=== PATIENT | female | born 1995 | race Caucasian/White ===

== ENCOUNTER 2016-09-28 00:28 | Inpatient (IN) | payer MEDICAID, OTHER ==
[~2016-09-28] VITALS: Ht 167.6 cm; Wt 97.0 kg
[2016-09-28] MEDS ORDERED: OXYTOCIN 30 UNITS/LR 500 ML IV SCH ×3 (01:30→07:00)
[2016-09-28] MEDS ORDERED: ACETAMINOPHEN/CODEINE #3 TAB PO PRN ×2 (01:30→18:30)
[2016-09-28] MEDS ORDERED: BUTORPHANOL 2 MG INJ IV PRN (01:30)
[2016-09-28] MEDS ORDERED: LACTATED RINGER'S 1,000 ML IV PRN (01:30)
[2016-09-28] MEDS ORDERED: METHYLERGONOVINE 0.2 MG INJ IM PRN ×2 (01:30→18:30)
[2016-09-28] MEDS ORDERED: CARBOPROST 250 MCG INJ IM PRN ×2 (01:30→18:30)
[2016-09-28] MEDS ORDERED: MISOPROSTOL 200 MCG TAB PR PRN ×2 (01:30→18:30)
[2016-09-28] MEDS ORDERED: LIDOCAINE 1% (MPF) 30 ML INJ INJ PRN (01:30)
[2016-09-28] MEDS ORDERED: OXYTOCIN 30 UNITS/LR 500 ML IV PRN ×2 (01:30→18:30)
[2016-09-28 01:38] VITALS: Ht 167.6 cm; Wt 97.0 kg
[2016-09-28] MEDS: LACTATED RINGER'S 1,000 ML IV SCH ×2 (01:50→09:28)
[2016-09-28 01:59] LABS: ADD SCAN DIFF NO
[2016-09-28 02:01] LABS: BASOPHILS % 0.3 % (0.0-2.0); EOSINOPHILS # 0.1 10^3/ul (0.0-0.5); EOSINOPHILS % 0.7 % (0.0-7.0); HEMATOCRIT 36.5 % (37.0-47.0); HEMOGLOBIN 12.3 g/dl (12.0-16.0); LYMPHOCYTES # 1.7 10^3/ul (0.8-2.9); LYMPHOCYTES % 14.2 % (15.0-51.0); MEAN CORPUSCULAR HEMOGLOBIN 28.7 pg (29.0-33.0); MEAN CORPUSCULAR HGB CONC 33.7 g/dl (32.0-37.0); MEAN CORPUSCULAR VOLUME 85.1 fl (82.0-101.0); MEAN PLATELET VOLUME 10.9 fl (7.4-10.4); MONOCYTE # 0.9 10^3/ul (0.3-0.9); MONOCYTES % 7.5 % (0.0-11.0); NEUTROPHIL # 8.9 10^3/ul (1.6-7.5); NEUTROPHILS % 76.1 % (39.0-77.0); PLATELET COUNT 209 10^3/UL (140-415); RED BLOOD COUNT 4.29 10^6/ul (4.20-5.40); RED CELL DISTRIBUTION WIDTH 13.5 % (11.5-14.5); WHITE BLOOD COUNT 11.6 10^3/ul (4.8-10.8)
--- NOTE | 2016-09-28 02:08 | TRIAGE ---
OB Triage Datetime Report Generated by CPN: 09/28/2016 02:08 Datetime: 09/28/2016 02:01 Assessment Type: Admission Assessment Vaginal Bleeding: None Maternal Assessment Level of Consciousness: Fully Conscious Headache: Denies Blurred Vision: No Respiratory Effort: Unlabored; Regular Rhythm; Equal Expansion Breath Sounds, Left: Clear and Equal Breath Sounds, Right: Clear and Equal Nausea/Vomiting: Denies RUQ Epigastric Pain: Denies Lower Extremities Edema: Bilateral Lower Extremities Degree: 1+ Facial Edema: None Fall Risk Assessment History of Falling: (0) No Secondary Diagnosis: (0) No Ambulatory Aid: (0) Bedrest/Nurse Assist IV Therapy: (20) Yes Gait: (0) Normal/Bedrest/Immobile Mental Status: (0) Oriented to Own Ability Fall Score: 20 Fall Risk Score Definition: No Risk: No action required Pain Assessment Pain Scale: 6 Pain Presence: Intermittent Pain Type: Cramping Pain Location: Abdomen Pain Goal: 2 Membrane Status: Ruptured Membranes Ruptured Date/Time: 09/27/2016 23:30 Membranes Rupture Method: Spontaneous Amniotic Fluid Color: Clear Datetime: 09/28/2016 02:00 Time of Arrival: 09/28/2016 01:00 EGA: 39.4 Arrived By: Wheelchair Arrived From: TRIAGE Datetime: 09/28/2016 01:30 Stage of : Labor Pain Assessment Pain Scale: 6 Pain Presence: Intermittent Pain Type: Cramping; Contraction Pain Location: Abdomen Pain Assessment Comments: PT. REQUEST EPIDURAL, BUT APPEARS COMFORTABLE Datetime: 09/28/2016 00:37 Stage of : OB Triage Temperature Route: Oral Labor Evaluation Monitor Mode: External Heart Rate Monitor Mode: External US Vaginal Exam Dilatation (cms): 2.0 Effacement (%): 80 Station: -2 Exam By: MELONIE URIBE Membrane Status: Ruptured Membranes Ruptured Date/Time: 09/27/2016 23:30 Membranes Rupture Method: Spontaneous Amniotic Fluid Color: Clear Amniotic Fluid Amount: Moderate Amniotic Fluid Odor: None Vaginal Bleeding: None Pool: Positive Datetime: 09/28/2016 00:30 Stage of : OB Triage Maternal Assessment Level of Consciousness: Fully Conscious Headache: Denies Blurred Vision: No Respiratory Effort: Unlabored; Regular Rhythm; Equal Expansion Breath Sounds, Right: Clear and Equal Nausea/Vomiting: Denies RUQ Epigastric Pain: Denies Facial Edema: None Temperature Route: Axillary Fall Risk Assessment History of Falling: (0) No Secondary Diagnosis: (0) No Ambulatory Aid: (0) Bedrest/Nurse Assist IV Therapy: (0) No Gait: (0) Normal/Bedrest/Immobile Mental Status: (0) Oriented to Own Ability Fall Score: 0 Fall Risk Score Definition: No Risk: No action required Datetime: 09/28/2016 00:29 Time of Arrival: 09/28/2016 00:20 EGA: 39.4 Arrived By: Wheelchair Arrived From: Home Chief Complaint: srom at 2330 Movement: Present Rupture of Membranes: Ruptured Vaginal Bleeding: None Vaginal Discharge: Denies Recent Sexual Intercouse: Denies Abdominal Trauma: Not Applicable Patient Complaints: Other Initial Plan: jeff, hardik,
[2016-09-28 02:19] LABS: PARTIAL THROMBOPLASTIN TIME 27.3 Sec (25.0-35.0); PROTIME 13.2 Sec (12.2-14.2)
[2016-09-28] MEDS ORDERED: FENTAnyl 2MCG/ML-ROPIV 0.2% 100 ML ONE (02:23)
--- NOTE | 2016-09-28 03:40 | RADRPT ---
PROCEDURE: ULTRASOUND OBSTETRICAL CLINICAL INDICATION: 20-year-old female in labor for size and date determination. TECHNIQUE: Multiple sonographic images of the pelvis were obtained. The images were reviewed on a PACS workstation. COMPARISON: No prior studies are available for comparison. FINDINGS: The cervix is not well visualized but appears closed but foreshortened with a length of length of 1. 6 cm. There is a single viable intrauterine gestation. Cardiac activity is present with 150 beats p er minute. There is a vertex presentation. Measurements were made in order to determine age. T he results are as follows: BPD = 9.71 cm, HC = 34.35 cm, AC = 34.54 cm, FL = 7.74 cm. This yields and estimated gestational ag e of approximately 39 weeks 3 days. The estimated date of delivery is October 02, 2016. The EFW = 36 59 +/- 549 g (8 lb 1 oz). The GP is 60%. The placenta is posterior. There is no evidence for an abruption or placenta previa. The amniotic fluid index equals 7.1 cm. IMPRESSION: 1. Single viable intrauterine gestation of approximately 39 weeks 3 days with vertex presentation. 2. The estimated weight is 3659 +/- 549 g (8 lb 1 oz). The GP is 60%. 3. The cervix is not well visualized but appears foreshortened with a length of 1.6 cm. .Edward Scott MD, MD Date Time Electronically viewed and signed by .Edward Scott MD, MD on 09/28/2016 03:40 .M/
[2016-09-28] MEDS ORDERED: NALOXONE (0.4 MG/ML) INJ IV PRN (05:00)
[2016-09-28] MEDS ORDERED: ONDANSETRON 4 MG INJ IV PRN (05:00)
[2016-09-28] MEDS ORDERED: DIPHENHYDRAMINE 50 MG INJ IV PRN (05:00)
[2016-09-28] MEDS ORDERED: FENTAnyl 2MCG/ML-ROPIV 0.2% 100 ML BAG EPI SCH (05:00)
--- NOTE | 2016-09-28 14:05 | HP ---
Date/Time of Note Date/Time of Note DATE: 09/28/16 TIME: 14:02 OB - History Hx of Present Chief Complaint: contractions Estimated Due Date: Oct 01, 2016 : 1 Para: 0 Spontaneous : 0 Therapeutic : 0 Care: Good Care Ultrasounds: Normal mid trimester US Obstetrical Complications: None Medical Complications: None Past Family/Social History * Past Medical, Surgical, Family and Obstetric Histories reviewed from chart. GBS Status: Negative OB Admission Exam Physical Exam HEENT: WNL Heart: Rhythm Normal Lungs: Clear Abdomen: WNL Extremities: Normal Cervical Dilatation: 4cm Effacement: 75% Station: -1 Membranes: Ruptured Amniotic Fluid: Clear Heart Rate: 140's Accelerations: Accelerations Present Decelerations: No Decelerations Varibility: Moderate Last 72 hours Lab Results CBC & BMP 09/28/16 01:30 OB Assessment/Plan Reason for admission: active labor Plan: Expectant Management LUCAS HAMMER MD Sep 28, 2016 14:05
--- NOTE | 2016-09-28 15:34 | LDN ---
Date/Time of Note Date/Time of Note DATE: 09/28/16 TIME: 15:31 Delivery Summary Weeks of Gestation 39 weeks and 4 days Placenta Delivered: Spontaneously Meconium: none Episiotomy: No Perineal laceration: 1 Laceration repair: Second degree laceration repaired with 3-0 Vicryl. Anesthesia type: Epidural Estimated blood loss: 200 Sponge & Needle done & correct: Yes All needle counts correct: Yes Any foreign bodies felt in the: No Problems: Delivery Information Sex Infant Sex: male Apgars 1 Minute: 8 5 Minute: 9 Suctioning Nose & mouth suctioned at raegan: Yes Delee suction performed: No Umbilical Cord Umbilical cord with: 3 Vessels Cord presentations: nuchal cord Nuchal cord present X: 1 Cord Blood was obtained: Yes Mother & Baby Disposition Disposition Mom & Baby to Maternity; Good: Yes LUCAS HAMMER MD Sep 28, 2016 15:34
[2016-09-28] MEDS: LACTATED RINGER'S 1,000 ML IV* SCH (18:15)
[2016-09-28 18:30] VITALS: BP 107/61; PULSE 91; RESP 18
[2016-09-28] MEDS ORDERED: BENZOCAINE 20% 56 ML SPRAY TOP PRN (18:30)
[2016-09-28] MEDS ORDERED: DIBUCAINE 1% 30 GM OINT PR PRN (18:30)
[2016-09-28] MEDS ORDERED: WITCH HAZEL/GLYCERIN PAD PR PRN (18:30)
[2016-09-28] MEDS ORDERED: ACETAMINOPHEN 325 MG TAB PO PRN (18:30)
[2016-09-28] MEDS ORDERED: LANOLIN 7 GM TUBE TOP PRN (18:30)
[2016-09-28 19:00] VITALS: BP 111/66; PULSE 91; RESP 18
[2016-09-28 20:00] VITALS: BP 101/53; PULSE 83; RESP 20
[2016-09-28] MEDS: SENNA/DOCUSATE NA (8.6MG/50MG) TAB PO SCH (22:18)
[2016-09-29 00:01] VITALS: BP 105/60; PULSE 102; RESP 18
[2016-09-29] MEDS: IBUPROFEN 600 MG TAB PO SCH ×4 (00:19→17:59)
[2016-09-29] MEDS: LACTATED RINGER'S 1,000 ML IV* SCH (02:13)
[2016-09-29 04:00] VITALS: BP 122/58; PULSE 101; RESP 18
[2016-09-29 07:53] LABS: ADD SCAN DIFF NO
[2016-09-29 07:57] LABS: BASOPHILS % 0.2 % (0.0-2.0); EOSINOPHILS # 0.1 10^3/ul (0.0-0.5); EOSINOPHILS % 0.5 % (0.0-7.0); HEMATOCRIT 35.8 % (37.0-47.0); HEMOGLOBIN 11.4 g/dl (12.0-16.0); LYMPHOCYTES # 2.3 10^3/ul (0.8-2.9); LYMPHOCYTES % 15.6 % (15.0-51.0); MEAN CORPUSCULAR HEMOGLOBIN 28.1 pg (29.0-33.0); MEAN CORPUSCULAR HGB CONC 31.8 g/dl (32.0-37.0); MEAN CORPUSCULAR VOLUME 88.4 fl (82.0-101.0); MONOCYTE # 1.4 10^3/ul (0.3-0.9); MONOCYTES % 9.2 % (0.0-11.0); NEUTROPHIL # 10.9 10^3/ul (1.6-7.5); NEUTROPHILS % 73.2 % (39.0-77.0); PLATELET COUNT 192 10^3/UL (140-415); RED BLOOD COUNT 4.05 10^6/ul (4.20-5.40); WHITE BLOOD COUNT 14.9 10^3/ul (4.8-10.8)
[2016-09-29 08:00] VITALS: BP 110/57; PULSE 97; RESP 19
[2016-09-29] MEDS: SENNA/DOCUSATE NA (8.6MG/50MG) TAB PO SCH ×2 (09:11→22:43)
[2016-09-29 12:00] VITALS: BP 108/76; PULSE 94
--- NOTE | 2016-09-29 14:03 | QN ---
Documentation Comment No complaint Afebrile VSS Fundus Firm Lochia Scant PPD #1 Stable Continue present care. LUCAS HAMMER MD Sep 29, 2016 14:03
[2016-09-29 15:50] VITALS: BP 109/67; PULSE 101; RESP 18
[2016-09-29 20:00] VITALS: BP 121/86; PULSE 95
[2016-09-30 04:00] VITALS: BP 100/61; PULSE 98; RESP 20
[2016-09-30] MEDS: IBUPROFEN 600 MG TAB PO SCH ×3 (06:11→12:13)
[2016-09-30 07:38] LABS: ADD SCAN DIFF NO
[2016-09-30 07:46] LABS: BASOPHILS % 0.3 % (0.0-2.0); EOSINOPHILS # 0.1 10^3/ul (0.0-0.5); EOSINOPHILS % 0.9 % (0.0-7.0); HEMATOCRIT 32.6 % (37.0-47.0); HEMOGLOBIN 10.4 g/dl (12.0-16.0); LYMPHOCYTES # 2.1 10^3/ul (0.8-2.9); LYMPHOCYTES % 16.2 % (15.0-51.0); MEAN CORPUSCULAR HEMOGLOBIN 28.2 pg (29.0-33.0); MEAN CORPUSCULAR HGB CONC 31.9 g/dl (32.0-37.0); MEAN CORPUSCULAR VOLUME 88.3 fl (82.0-101.0); MEAN PLATELET VOLUME 10.9 fl (7.4-10.4); MONOCYTE # 0.9 10^3/ul (0.3-0.9); MONOCYTES % 7.1 % (0.0-11.0); NEUTROPHIL # 9.5 10^3/ul (1.6-7.5); NEUTROPHILS % 74.4 % (39.0-77.0); PLATELET COUNT 175 10^3/UL (140-415); RED BLOOD COUNT 3.69 10^6/ul (4.20-5.40); RED CELL DISTRIBUTION WIDTH 14.1 % (11.5-14.5); WHITE BLOOD COUNT 12.7 10^3/ul (4.8-10.8)
[2016-09-30 08:10] VITALS: BP 124/69; PULSE 81
[2016-09-30] MEDS ORDERED: DIPHTH/TET/ACEL PERTUSS (ADULT) 0.5 ML VIAL IM* ONE (09:00)
[2016-09-30] MEDS: SENNA/DOCUSATE NA (8.6MG/50MG) TAB PO SCH (09:00)
--- NOTE | 2016-09-30 13:29 | DS ---
Date/Time of Note Date/Time of Note DATE: 09/30/16 TIME: 13:28 Obstetrical Discharge Record Final Diagnosis Final Diagnosis: Term delivered Vaginal Delivery Obstetrical Delivery: Spontaneous, Laceration, Repaired Condition on Discharge Physical Assessment Voiding: Yes Bowel Movement: Yes Breast: Soft, non-tender Fundus: Firm Calf Tenderness: No Patient Condition: Stable LUCAS HAMMER MD Sep 30, 2016 13:29
== END 2016-09-30 14:45 | disposition home or self-care (01) | DRG 775 ==
LOC: OBT 00:28 → L-D 00:28 → OBT 02:02 → L-D 02:07 → PP1 17:55
PROVIDERS: ADMIT Obstetrics & Gynecology; ATTEND Obstetrics & Gynecology
PROC: 10E0XZZ Delivery of Products of Conception, External Approach (ICD-10-PCS; principal; 2016-09-28)
PROC: 0KQM0ZZ Repair Perineum Muscle, Open Approach (ICD-10-PCS; 2016-09-28)
DX: O69.81X0 Labor and delivery complicated by cord around neck, without compression, not applicable or unspecified (principal); O70.1 Second degree perineal laceration during delivery; Z3A.39 39 weeks gestation of pregnancy; Z37.0 Single live birth
CPT/HCPCS: 62319; 76815; 85025; 85610; 85730; 86592; 86900; 86901; 87340; 90715; G0463; J2405; J2590; J3010; J7120

== ENCOUNTER 2018-05-31 21:05 | Inpatient (IN) | END 2018-06-02 14:05 | disposition home or self-care (01) | DRG 807 ==